=== PATIENT | female | born 1980 | race Caucasian/White ===

== ENCOUNTER 2018-01-12 08:05 | Inpatient (IN) | payer OTHER ==
[2018-01-12 08:56] VITALS: BMI 38.7
[2018-01-12] MEDS ORDERED: OXYTOCIN 20 UNITS in 0.9% NS 20 UNIT/1,000 ML INFUS.BAG IV ONE ×2 (09:45→13:25)
[2018-01-12] MEDS ORDERED: ONDANSETRON 4 MG/2 ML VIAL IVPUSH PRN (09:58)
[2018-01-12] MEDS ORDERED: morphine SULFATE/Preservative Free 0.5 MG/ML (1cc Syringe) EP ONE (09:58)
[2018-01-12] MEDS ORDERED: CITRIC ACID/SODIUM CITRATE 30 ML UNIT-DOSE CUP PO ONE (10:13)
[2018-01-12] MEDS ORDERED: ELECTROLYTE-148 SOLN 500 ML IV ONE (10:13)
[2018-01-12] MEDS ORDERED: PANTOPRAZOLE SODIUM 40 MG VIAL IVPUSH SCH (10:15)
[2018-01-12] MEDS: ELECTROLYTE-148 SOLN 1,000 ML IV SCH (10:15)
[2018-01-12] MEDS ORDERED: morphine SULFATE/Preservative Free 0.5 MG/ML (1cc Syringe) ONE (10:16)
[2018-01-12] MEDS ORDERED: BUPIVACAINE 0.75% IN DEXTROSE/PF 2ML AMPULE NR ONE (10:18)
--- NOTE | 2018-01-12 10:21 | HP ---
Past Medical History - Admission History of Present Illness: 37 yo @ 39 6/7 wks by first trimester ultrasound, EDC 01/13/2018 complicated by: 1. Prior delivery 2. Hx/o obesity, s/p bariatric surgery x 2 Lap band 2007, gastric sleeve 2012 3. AMA - favorable testing 4. Anemia - previously on iron infusion (5 doses) She presents for routine scheduled CD. She reports movement, denies leakage of fluid, vaginal bleeding or contractions. History Source: Patient Limitations to Obtaining History: No Limitations - Past Medical History Cardiovascular: No: HTN Pulmonary: No: Asthma Gastrointestinal: Yes: GERD ...: 2 ...Para: 1 ...Term: 1 ...: 0 ...Spon : 0 ...Induced : 0 ...Multiple Gestation: 0 ...LMP: 04/08/17 ...EDC by Sono: 01/13/18 Heme/Onc: Yes: Anemia - Past Surgical History Hx Myomectomy: No Hx Transabdominal Cerclage: No Additional Surgical History: Lap Band 2007. Gastric Sleeve 2012 - Smoking History Smoking history: Never smoked Have you smoked in the past 12 months: No - Alcohol/Substance Use Hx Alcohol Use: No History of Substance Use: reports: None - Social History Usual Living Arrangement: Yes: With Spouse History of Recent Travel: No Home Medications - Allergies Allergies/Adverse Reactions: Allergies Allergy/AdvReac Type Severity Reaction Status Date / Time Penicillins Allergy Mild Hives Verified 01/12/18 08:58 - Home Medications Home Medications: Ambulatory Orders Nexium 1 tab PO DAILY 01/12/18 Tablet 1 tab PO DAILY 01/12/18 Family Disease History - Family Disease History Family History: Denies Review of Systems - Review of Systems Constitutional: reports: No Symptoms Neck: reports: No Symptoms Cardiovascular: reports: No Symptoms Respiratory: reports: No Symptoms Genitourinary: reports: No Symptoms Integumentary: reports: No Symptoms Neurological: reports: No Symptoms Endocrine: reports: No Symptoms Hematology/Lymphatic: reports: No Symptoms Psychiatric: reports: No Symptoms Physical Exam - Maternity Vital Signs: Vital Signs Temperature 97.8 F 01/12/18 08:05 Pulse Rate 83 01/12/18 08:05 Respiratory Rate 20 01/12/18 09:00 Blood Pressure 105/68 01/12/18 08:05 O2 Sat by Pulse Oximetry (%) Constitutional: Yes: Well Nourished, No Distress, Calm Cardiovascular: Yes: Regular Rate and Rhythm Lungs: Clear to auscultation - Abdominal Exam/OB Number of Fetuses: Single Presentation: Vertex Contractions: No Heart Rate (range): 125 Category: I - Physical Exam Musculoskeletal: Yes: WNL Edema: Yes ...Motor Strength: WNL Psychiatric: Yes: Alert, Oriented - Labs Lab Results: PNL - O positive, antibody negative, RPR NR; HBS Ag negative; Runella immune; GBS negative; HIV negative Hemorrhage Risk Assessment - Risk Factors Medium Risk Factors: Yes: Prior , uterine surgery,or multiple laparotomies High Risk Factors: Yes: None Risk Score: 1 Risk Level: Medium Risk Assessment/Plan 37 yo for repeat scheduled CD 1. Consents reviewed and signed. Risks including infection, hemorrhage requiring transfusion, damage to surrounding organs such as bowel and bladder, risk of injury to infant was discussed. 2. PCN allergy, plan for clindamycin 3. GBS negative 4. Hx/o bariatric surgery - plan for nexium daily, avoidance of Motrin and Caldolor. 5. Will proceed to OR
[2018-01-12] MEDS ORDERED: ePHEDrine SULFATE 50 MG/1 ML AMPULE ONE (10:29)
[2018-01-12] MEDS ORDERED: CLINDAMYCIN PHOSPHATE 600 MG/4 ML VIAL ONE (10:35)
[2018-01-12] MEDS ORDERED: GENTAMICIN SO4 80 MG/2 ML VIAL ONE ×2 (10:37→10:38)
[2018-01-12] MEDS ORDERED: PHENYLEPHRINE HCL 10 MG/1 ML SINGLE DOSE VIAL ONE (10:40)
[2018-01-12] MEDS ORDERED: OXYTOCIN 10 UNITS/ML VIAL ONE (10:53)
[2018-01-12] MEDS ORDERED: TUBERCULIN PPD 5 TU/0.1ML SYRINGE (IN PATIENT USE ONLY) ID ONE (11:36)
[2018-01-12] MEDS ORDERED: WITCH HAZEL 50% (TUCKS) 40 PAD/JAR PAD TP PRN (11:37)
[2018-01-12] MEDS ORDERED: IBUPROFEN 800 MG/8 ML IJ IVPB PRN (11:37)
[2018-01-12] MEDS ORDERED: SENNOSIDES/DOCUSATE COMBO (SENNA PLUS) TABLET (UD) PO PRN (11:37)
[2018-01-12] MEDS ORDERED: METHYLERGONOVINE MALEATE 0.2 MG/1 ML AMP IM PRN (11:37)
[2018-01-12] MEDS ORDERED: IBUPROFEN 600 MG TABLET (FP) PO PRN (11:37)
[2018-01-12] MEDS ORDERED: ACETAMINOPHEN 1000 MG/100 ML VIAL (NON FORMULARY) IVPB PRN (11:45)
--- NOTE | 2018-01-12 11:55 | PN ---
Delivery - Delivery Section: Repeat Type of Anesthesia: Spinal Episiotomy/Laceration: None EBL (cc): 700 Delivery, Single - Stages of Labor Date of Delivery: 01/12/18 Time of Delivery: 10:54 Time Placenta Delivered: 10:55 - Condition of Instructional Supervisor/Housekeeping Supervisor Present: Yes Infant Gender: Male Weight: 6 lb 15 oz Position: Left, OA Total Hours ROM (Hrs/Mins): 2 mins - 1 Minute Total Score: 9 5 Minutes Total Score: 9 - [place] Feeding Plan Initial Plan: Exclusive throughout hospitalization Remarks - Remarks Remarks: Surgery: Repeat delivery via pfannenstiel Incision Surgeon: Gustavo; Assist: [place]; Anesthesia: Joyo Anesthesia type: Spinal Findings: Male infant, LOT position, 9,9; wt 6 lb 15 oz; 19 inches; normal tubes and ovaries bilaterally IVFluids: 1500; EBL: 700 Dictation: [id number]
[2018-01-12] MEDS: OXYTOCIN 20 UNITS in 0.9% NS 20 UNIT/1,000 ML INFUS.BAG IV SCH (12:55)
--- NOTE | 2018-01-12 19:56 | OP ---
DATE OF OPERATION: 01/12/2018 ATTENDING PHYSICIAN RESPONSIBLE FOR FINAL REPORT: Yomaira Chen M.D. PREOPERATIVE DIAGNOSIS: Intrauterine 39+ weeks, prior section, desiring repeat. POSTOPERATIVE DIAGNOSIS: Intrauterine 39+ weeks, prior section, desiring repeat. SURGEON: Yomaira Chen M.D. CAREER CENTER ADVISOR: Jian Duncan M.D. STRATEGY LEAD: Tommy Crawford M.D. ANESTHESIA: Spinal. FINDINGS: Male infant, LOT position, Apgars 9 and 9, weight 6 pounds 15 ounces , 19 inches. Normal tubes and ovaries bilaterally. INDICATION: The patient is a 37-year-old 2 para 1 with history of prior section, desiring repeat. She was counseled regarding risks, benefits , and alternatives and complications to procedure including infection, bleeding, damage to surrounding organs such as bowel, bladder and infant. She expressed understanding, was brought to operating room. DESCRIPTION OF PROCEDURE: When anesthesia was felt to be adequate, patient was prepped and draped in normal sterile fashion, placed in dorsal supine position with a leftward tilt. Approximately 12-cm skin incision was made with knife and carried down to underlying rectus muscle using Bovie electrocautery. The fascia was nicked in the midline, extended laterally using the electrocautery. Inferior portion of the fascial incision was tented up using Juliet clamps and dissected off underlying rectus muscle using Ceja scissors. Attention was brought to superior portion where in similar fashion was tented up using Juliet clamps and dissected off the underlying rectus muscles using Ceja scissors. The rectus muscle was in midline and the peritoneum was entered sharply and extended superiorly and inferiorly using Metzenbaum scissors. The Tay-O retractor was placed in the abdominal cavity. The interior ring was verified to not have any loops of bowel caught in the retractor and was used for adequate visualization of the abdominal cavity. The hysterotomy was performed with a knife and carried down in extended superiorly and laterally using the bandage scissors. The amniotomy was performed, clear fluid was noted. 's head was brought to hysterotomy site, it was delivered atraumatically followed by shoulders and body without difficulty. Cord was clamped and cut, baby was handed to the NICU staff. Cord blood was collected and sent. The placenta was extracted. The uterus was cleared of all clot and debris. The hysterotomy was then repaired using a 0 Biosyn in running fashion with 2nd layer as imbricated layer. Copious irrigation was performed. Examination of bilateral fallopian tubes and ovaries were noted to be normal appearing. The peritoneum was then closed using 2-0 Biosyn in a running fashion. The fascia was closed using 0 Vicryl in a running fashion. The subcutaneous fat was closed using a 3-0 Vicryl in a running fashion. The skin was closed using 3-0 Vicryl. Patient tolerated procedure well. Estimated blood loss was 700 mL. Patient was brought to recovering room in stable condition. Leda [id number] MTDD
[2018-01-13] MEDS: ACETAMINOPHEN 325 MG TABLET (FP) PO PRN ×4 (06:46→22:56)
[2018-01-13] MEDS: PANTOPRAZOLE 40 MG TABLET (FP) PO SCH ×2 (06:47→10:46)
[2018-01-13 07:18] LABS: BASO % 0.5 % (0-2.0); EOS % 1.1 % (0-4.5); HEMOGLOBIN 11.3 GM/dL (10.7-15.3); MCHC 32.5 g/dl (32.0-36.0); MEAN CELL VOLUME 86.3 fl (80-96); MEAN PLT VOLUME 7.6 fl (7.5-11.1); MONO % 6.7 % (3.8-10.2); NEUT % 81.7 % (42.8-82.8); PLATELET COUNT 307 K/MM3 (134-434); RBC 4.05 M/mm3 (3.60-5.2); RDW 22.9 % (11.6-15.6); WHITE BLOOD COUNT 15.4 K/mm3 (4.0-10.0)
[2018-01-13] MEDS: SIMETHICONE 80 MG TAB.CHEW (FP) PO PRN ×4 (07:50→22:55)
[2018-01-13] MEDS: oxyCODONE HCL 5 MG TABLET PO PRN ×4 (07:50→22:55)
--- NOTE | 2018-01-13 08:20 | PN ---
Progress Note, Physician Chief Complaint: Pt. ambulating and voiding, pain controlled, no anesthesia complaints. - Current Medication List Current Medications: Active Medications Acetaminophen (Tylenol -) 650 mg PO Q4H PRN PRN Reason: FEVER Last Admin: 01/13/18 06:46 Dose: 650 mg Acetaminophen (Ofirmev Injection -) 1,000 mg IVPB Q6H PRN PRN Reason: PAIN LEVEL 6-10 Last Admin: 01/13/18 00:54 Dose: 1,000 mg Bisacodyl (Dulcolax Suppository -) 10 mg RC PRN PRN PRN Reason: CONSTIPATION Diphenhydramine HCl (Benadryl Injection -) 25 mg IVPUSH Q4H PRN PRN Reason: Pruritis Last Admin: 01/12/18 21:56 Dose: 25 mg Diphtheria/Tetanus/Acell Pertussis (Boostrix -) 0.5 ml IM .ONCE ONE Stop: 01/13/18 10:01 Enoxaparin Sodium (Lovenox -) 40 mg SQ DAILY [facility] Parenteral Electrolytes (Plasma-Lyte 148 -) 1,000 mls @ 125 mls/hr IV ASDIR [facility] Last Admin: 01/12/18 10:15 Dose: 125 mls/hr Oxytocin/Sodium Chloride (Normal Saline+20 Units Oxytocin -) 20 unit in 1,000 mls @ 125 mls/hr IV ASDIR [facility] Last Admin: 01/12/18 12:55 Dose: 125 mls/hr Methylergonovine Maleate (Methergine Injection -) 0.2 mg IM Q4H PRN PRN Reason: Excessive Bleeding (L&D) Ondansetron HCl (Zofran Injection) 4 mg IVPUSH Q4H PRN PRN Reason: NAUSEA Oxycodone HCl (Roxicodone -) 5 mg PO Q4H PRN PRN Reason: PAIN LEVEL 4 - 6 Last Admin: 01/13/18 07:50 Dose: 5 mg Pantoprazole Sodium (Protonix -) 40 mg PO DAILY [facility] Last Admin: 01/13/18 06:47 Dose: 40 mg Multivit/Folic Acid/Iron ( Vitamins (Sjr) -) 1 tab PO DAILY [facility] Senna/Docusate Sodium (Pericolace -) 2 tablet PO HS PRN PRN Reason: CONSTIPATION Simethicone (Mylicon -) 80 mg PO Q4H PRN PRN Reason: GAS Last Admin: 01/13/18 07:50 Dose: 80 mg Witch Amy/Glycerin (Tucks Pads -) 1 pad TP PRN PRN PRN Reason: Pain - Topical - Objective Vital Signs: Vital Signs Temperature 98.5 F 01/13/18 06:00 Pulse Rate 83 01/13/18 06:00 Respiratory Rate 20 01/13/18 07:00 Blood Pressure 103/54 01/13/18 06:00 O2 Sat by Pulse Oximetry (%) 100 01/12/18 12:45 Constitutional: Yes: Well Nourished, No Distress, Calm Musculoskeletal: Yes: WNL Neurological: Yes: WNL, Alert, Oriented ...Motor Strength: WNL Labs: CBC, BMP 01/13/18 06:35 Assessment/Plan POD#1 s/p under spinal with duramorph. Doing well. D/C from anesthesia care.
[2018-01-13] MEDS: ENOXAPARIN NA (PORCINE) 40 MG/0.4 ML DISP.SYRIN SQ SCH (09:21)
[2018-01-13] MEDS: PRENATAL VITAMINS W/ FOLIC ACID TABLET (FP) PO SCH (09:21)
[2018-01-13] MEDS ORDERED: PATIENT'S OWN MEDICATION (NON-FORMULARY) (Prenatal Tablet 1 TAB) PO SCH (10:00)
[2018-01-13] MEDS ORDERED: DIPHTH,PERTUSS(ACELL),TET 0.5 ML DISP.SYRIN IM ONE (10:00)
--- NOTE | 2018-01-13 10:51 | PN ---
Post Progress Note - Subjective Subjective: She has no complains, ambulating, + BM Post Day: 1 Type of Delivery: Repeat C/S Vital Signs: Vital Signs Temperature 98.2 F 01/13/18 10:00 Pulse Rate 72 01/13/18 10:00 Respiratory Rate 20 01/13/18 10:00 Blood Pressure 96/46 01/13/18 10:00 O2 Sat by Pulse Oximetry (%) 100 01/12/18 12:45 Breast Exam: Yes: Soft Uterus: Yes: Fundus Firm, Fundus @ umbilicus Incision: Yes: Dressing dry and intact Abdomen/GI: Yes: Abdomen soft Lochia: Yes: Rubra Lochia, amount: Small Extremities: Yes: Calves non-tender Perineum: Yes: Intact Activity: Ambulating - Labs Labs: CBC WBC 15.4 K/mm3 (4.0-10.0) H 01/13/18 06:35 RBC 4.05 M/mm3 (3.60-5.2) 01/13/18 06:35 Hgb 11.3 GM/dL (10.7-15.3) 01/13/18 06:35 Hct 35.0 % (32.4-45.2) 01/13/18 06:35 MCV 86.3 fl (80-96) 01/13/18 06:35 MCH 28.0 pg (25.7-33.7) 01/13/18 06:35 MCHC 32.5 g/dl (32.0-36.0) 01/13/18 06:35 RDW 22.9 % (11.6-15.6) H 01/13/18 06:35 Plt Count 307 K/MM3 (134-434) 01/13/18 06:35 MPV 7.6 fl (7.5-11.1) 01/13/18 06:35 Absolute Neuts (auto) 12.6 # 01/13/18 06:35 Neutrophils % 81.7 % (42.8-82.8) 01/13/18 06:35 Lymphocytes % 10.0 % (8-40) D 01/13/18 06:35 Monocytes % 6.7 % (3.8-10.2) 01/13/18 06:35 Eosinophils % 1.1 % (0-4.5) D 01/13/18 06:35 Basophils % 0.5 % (0-2.0) 01/13/18 06:35 Nucleated RBC % 0 % (0-0) 01/13/18 06:35 Assessment/Plan 37yo P2 now POD # 1 Doing well, Afebrile, VSS Rh positive no need for RhoGam continue routine care Male infant for circumcision
[2018-01-13] MEDS ORDERED: BISACODYL 10 MG SUPP.RECT RC PRN (11:37)
[2018-01-13] MEDS: ELECTROLYTE-148 SOLN 1,000 ML IV SCH (23:14)
[2018-01-13] MEDS: OXYTOCIN 20 UNITS in 0.9% NS 20 UNIT/1,000 ML INFUS.BAG IV SCH (23:15)
[2018-01-14] MEDS: SIMETHICONE 80 MG TAB.CHEW (FP) PO PRN ×5 (04:41→23:04)
[2018-01-14] MEDS: oxyCODONE HCL 5 MG TABLET PO PRN ×5 (04:41→23:04)
[2018-01-14] MEDS: ACETAMINOPHEN 325 MG TABLET (FP) PO PRN ×5 (04:42→23:04)
[2018-01-14] MEDS: ENOXAPARIN NA (PORCINE) 40 MG/0.4 ML DISP.SYRIN SQ SCH (09:16)
[2018-01-14] MEDS: PRENATAL VITAMINS W/ FOLIC ACID TABLET (FP) PO SCH (09:16)
[2018-01-14] MEDS: PANTOPRAZOLE 40 MG TABLET (FP) PO SCH (09:16)
--- NOTE | 2018-01-14 23:51 | PN ---
Progress Note (short form) - Note Progress Note: Patient states desires circumcision for infant. Discussed risks including infection, bleeding, damage to tip of penis, and unsatisfactory result, resulting in surgical repair or repeat circumcision. Patient expressed understanding and consents to procedure. Reviewed infants chart, cleared for circumcision and normal genitalia per fleet service clerk, Dr. Zamora
[2018-01-15] MEDS: ACETAMINOPHEN 325 MG TABLET (FP) PO PRN ×4 (06:05→23:36)
[2018-01-15] MEDS: SIMETHICONE 80 MG TAB.CHEW (FP) PO PRN ×4 (06:05→23:36)
[2018-01-15] MEDS: oxyCODONE HCL 5 MG TABLET PO PRN ×4 (06:05→23:36)
[2018-01-15 07:01] LABS: BASO % 0.6 % (0-2.0); EOS % 2.8 % (0-4.5); HEMATOCRIT 33.4 % (32.4-45.2); HEMOGLOBIN 10.9 GM/dL (10.7-15.3); LYMPH % 20.3 % (8-40); MCH 28.3 pg (25.7-33.7); MCHC 32.8 g/dl (32.0-36.0); MEAN CELL VOLUME 86.2 fl (80-96); MEAN PLT VOLUME 7.3 fl (7.5-11.1); MONO % 6.8 % (3.8-10.2); NEUT % 69.5 % (42.8-82.8); PLATELET COUNT 286 K/MM3 (134-434); RBC 3.87 M/mm3 (3.60-5.2); RDW 22.6 % (11.6-15.6); WHITE BLOOD COUNT 8.4 K/mm3 (4.0-10.0)
--- NOTE | 2018-01-15 08:00 | PN ---
Post Progress Note - Subjective Subjective: Patient without acute complaints. Reports tolerating oral intake without nausea or vomiting. Ambulating without dizziness. Denies fevers or chills. Pain well controlled with oral pain medication. with supplementation. Passing flatus. Post Day: 3 Type of Delivery: Repeat C/S Vital Signs: Vital Signs Temperature 98.1 F 01/14/18 20:12 Pulse Rate 72 01/14/18 20:12 Respiratory Rate 20 01/14/18 20:12 Blood Pressure 128/60 01/14/18 20:12 O2 Sat by Pulse Oximetry (%) 100 01/12/18 12:45 Breast Exam: Yes: Soft Uterus: Yes: Fundus Firm Incision: Yes: Sutures intact. No: Redness, Oozing Abdomen/GI: Yes: Abdomen soft, Abdominal Distention (mild soft), Tender (mild incisional), Passing flatus, Tolerating PO Lochia: Yes: Serosa Lochia, amount: Small Extremities: Yes: Calves non-tender, Edema (+1) Activity: Ambulating - Labs Labs: CBC WBC 8.4 K/mm3 (4.0-10.0) 01/15/18 06:00 RBC 3.87 M/mm3 (3.60-5.2) 01/15/18 06:00 Hgb 10.9 GM/dL (10.7-15.3) 01/15/18 06:00 Hct 33.4 % (32.4-45.2) 01/15/18 06:00 MCV 86.2 fl (80-96) 01/15/18 06:00 MCH 28.3 pg (25.7-33.7) 01/15/18 06:00 MCHC 32.8 g/dl (32.0-36.0) 01/15/18 06:00 RDW 22.6 % (11.6-15.6) H 01/15/18 06:00 Plt Count 286 K/MM3 (134-434) 01/15/18 06:00 MPV 7.3 fl (7.5-11.1) L 01/15/18 06:00 Absolute Neuts (auto) 5.8 # 01/15/18 06:00 Neutrophils % 69.5 % (42.8-82.8) 01/15/18 06:00 Lymphocytes % 20.3 % (8-40) D 01/15/18 06:00 Monocytes % 6.8 % (3.8-10.2) 01/15/18 06:00 Eosinophils % 2.8 % (0-4.5) D 01/15/18 06:00 Basophils % 0.6 % (0-2.0) 01/15/18 06:00 Nucleated RBC % 0 % (0-0) 01/15/18 06:00 Assessment/Plan 37 yo POD #3 s/p repeat CD, afebrile, vital signs stable, doing well 1. Continue routine postoperative care. 2. Encourage ambulation and incentive spirometer use 3. Continue oral pain medication 4. Anticipate discharge home postoperative day #4
[2018-01-15] MEDS: PANTOPRAZOLE 40 MG TABLET (FP) PO SCH ×2 (08:05→10:33)
[2018-01-15] MEDS: ENOXAPARIN NA (PORCINE) 40 MG/0.4 ML DISP.SYRIN SQ SCH (11:43)
[2018-01-15] MEDS: PRENATAL VITAMINS W/ FOLIC ACID TABLET (FP) PO SCH (11:43)
[2018-01-16] MEDS: PANTOPRAZOLE 40 MG TABLET (FP) PO SCH ×2 (07:58→10:18)
[2018-01-16] MEDS: ACETAMINOPHEN 325 MG TABLET (FP) PO PRN (07:59)
[2018-01-16] MEDS: oxyCODONE HCL 5 MG TABLET PO PRN (07:59)
[2018-01-16] MEDS: SIMETHICONE 80 MG TAB.CHEW (FP) PO PRN (08:00)
--- NOTE | 2018-01-16 08:22 | DS ---
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 Vital Signs: Vital Signs Temperature 98.2 F 01/15/18 21:00 Pulse Rate 74 01/15/18 21:00 Respiratory Rate 20 01/15/18 21:00 Blood Pressure 102/54 01/15/18 21:00 O2 Sat by Pulse Oximetry (%) 100 01/12/18 12:45 Constitutional: Yes: Well Nourished, No Distress Eyes: Yes: WNL, Conjunctiva Clear HENT: Yes: WNL, Atraumatic, Normocephalic Neck: Yes: WNL, Supple, Trachea Midline Cardiovascular: Yes: WNL, Regular Rate and Rhythm Respiratory: Yes: WNL, Regular, CTA Bilaterally Gastrointestinal: Yes: WNL, Normal Bowel Sounds, Soft ...Rectal Exam: Yes: Deferred Renal/: Yes: WNL External Genitalia: Yes: Normal Internal Exam Deferred: Yes ....Post : Yes: Uterus firm, Uterus non-tender, Slight lochia rubra Breast(s): Yes: WNL Musculoskeletal: Yes: WNL Extremities: Yes: WNL Edema: Yes Edema: LLE: Trace, RLE: Trace Integumentary: Yes: WNL Wound/Incision: Yes: Clean/Dry, Well Approximated Neurological: Yes: WNL, Alert, Oriented ...Motor Strength: WNL Psychiatric: Yes: WNL, Alert, Oriented Labs: CBC, BMP 01/15/18 06:00 Delivery - Delivery Section: Repeat, Low Flap Transverse Type of Anesthesia: Spinal Episiotomy/Laceration: None EBL (cc): 700 Delivery, Single - Stages of Labor Date of Delivery: 01/12/18 Time of Delivery: 10:54 Time Placenta Delivered: 10:55 Placenta: Yes: Manual Removal, Normal Configuration - Condition of Group Activities Aide/Information Systems Administrator Present: Yes Infant Gender: Male Weight: 3.147 kg Position: Left, OA Total Hours ROM (Hrs/Mins): 2 mins - 1 Minute Total Score: 9 5 Minutes Total Score: 9 - Feeding Plan Initial Plan: Exclusive throughout hospitalization Discharge Summary Reason For Visit: C/SECTION Current Active Problems S/P bariatric surgery (Acute) Status post repeat low transverse section (Acute) Procedures: Principal: Repeat LT C/S Condition: Good - Instructions Diet, Activity, Other Instructions: Physical activity Resume your normal everyday activity as tolerated no heavy lifting or exercise until seen by your surgeon. You may walk unlimited james of and climb stairs. You may resume driving the car when you feel safe and comfortable behind the wheel. No sexual activity as instructed. Wound care If you have a bandage, leave it on, and keep dry for 48-72 hours. After that time discard the outer bandage. If they are tapes on the skin under the out of bandage leave them in place. They will peel off in the next 7 to 10 days. Do Not Peel them off. You may shower the day after surgery. If there are tapes present on the skin, you may shower over them. Diet There are no dietary restrictions. Eat healthy, high-fiber foods. Drink 6 to 8 glasses of liquid each day. This will assist in keeping your bowels are regular. Pain management You may take Tylenol or acetaminophen or Ibuprofen (for example, Motrin, Advil etc.) from my pain prescription medication is ordered should be taken as prescribed for moderate to severe pain. Call MD for any of the following: Severe pain not relieved by medication Fever of 101 or higher Excessive bleeding or drainage on dressing Inability to urinate [facility] Reference #: [id number] Referrals: Yomaira Chen MD [Staff Physician] - Disposition: HOME - Home Medications Comprehensive Discharge Medication List: Ambulatory Orders Nexium 1 tab PO DAILY 01/12/18 Tablet 1 tab PO DAILY 01/12/18 Oxycodone HCl/Acetaminophen [Percocet 5-325 mg Tablet -] 1 tab PO Q6H #15 tab MDD 4 01/15/18
[2018-01-16] MEDS: ENOXAPARIN NA (PORCINE) 40 MG/0.4 ML DISP.SYRIN SQ SCH (09:54)
[2018-01-16] MEDS: PRENATAL VITAMINS W/ FOLIC ACID TABLET (FP) PO SCH (09:54)
[2018-01-16 11:13] VITALS: BP 111/64; PULSE 72; TEMP 98
--- NOTE | 2018-01-20 16:54 | PATH ---
Surgical Pathology Report Patient Name: GILMAR SHAH [facility]. Rec. 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 Electronically Signed Martha Esqueda M.D. Gross Description The specimen is received fresh labeled placenta and is a 466 gram, 15.0 x 14.0 x 2.9 cm. placenta with attached membranes and umbilical cord. The attached membranes are chahal, translucent with focal opacities and insert marginally. The umbilical cord measures 42 cm. in length and averages 0.8 cm. in diameter. The cord inserts eccentrically, 3.5 cm. to the nearest margin. No true knots or strictures are identified. Cut surface of the umbilical cord reveals 3 vessels. The surface is reyna-blue with minimal fibrin deposition and appropriate caliber vessels. The maternal surface is red-brown with focal defects. Sectioning reveals red-brown, spongy parenchyma. No lesions are identified. Travel Freight And Passenger Agent sections are submitted in three cassettes as follows: 1- membrane rolls and umbilical cord; 2-3- full thickness sections of placenta. 01/15/2018 saudi01/15/2018
== END 2018-01-16 11:30 | disposition home or self-care (01) | DRG 540 ==
LOC: JLDR 08:05 → J3W 13:35
PROVIDERS: ADMIT Obstetrics & Gynecology; ATTEND Obstetrics & Gynecology
PROC: 10D00Z1 Extraction of Products of Conception, Low, Open Approach (ICD-10-PCS; principal; 2018-01-12)
DX: O34.211 Maternal care for low transverse scar from previous cesarean delivery (principal); O99.213 Obesity complicating pregnancy, third trimester; E66.9 Obesity, unspecified; O36.0930 Maternal care for other rhesus isoimmunization, third trimester, not applicable or unspecified; O99.013 Anemia complicating pregnancy, third trimester; D64.9 Anemia, unspecified; O26.893 Other specified pregnancy related conditions, third trimester; K21.9 Gastro-esophageal reflux disease without esophagitis; Z68.38 Body mass index [BMI] 38.0-38.9, adult; Z98.84 Bariatric surgery status; Z3A.39 39 weeks gestation of pregnancy; Z37.0 Single live birth
CPT/HCPCS: 36415; 85025; 88307-TC; 90715; J0131

== ENCOUNTER 2018-02-04 21:16 | Emergency (ER) | payer OTHER ==
[2018-02-04 21:22] VITALS: BMI 36.5
--- NOTE | 2018-02-04 21:22 | PDOC ---
Rapid Medical Evaluation Time Seen by Provider: 02/04/18 21:19 Medical Evaluation: Allergies Allergy/AdvReac Type Severity Reaction Status Date / Time Penicillins Allergy Mild Hives Verified 01/12/18 08:58 02/04/18 21:19 I have performed a brief in-person evaluation of this patient. The patient presents with a chief complaint of: wound dehiscence of 01/12 Pertinent physical exam findings: wound dehiscence to left side of wound. No drainage present. +erythema noted I have ordered the following: labs, urine The patient will proceed to the ED for further evaluation. Discharge Disposition - Diagnosis section wound complication - Referrals - Patient Instructions - Post Discharge Activity
[2018-02-04 21:46] LABS: EOS % 3.3 % (0-4.5); HEMATOCRIT 40.2 % (32.4-45.2); HEMOGLOBIN 13.3 GM/dL (10.7-15.3); LYMPH % 40.3 % (8-40); MCH 28.8 pg (25.7-33.7); MCHC 33.1 g/dl (32.0-36.0); MEAN CELL VOLUME 87.2 fl (80-96); MEAN PLT VOLUME 7.9 fl (7.5-11.1); MONO % 6.6 % (3.8-10.2); NEUT % 48.8 % (42.8-82.8); PLATELET COUNT 414 K/MM3 (134-434); RBC 4.62 M/mm3 (3.60-5.2); RDW 18.6 % (11.6-15.6); WHITE BLOOD COUNT 8.1 K/mm3 (4.0-10.0)
[2018-02-04 21:54] LABS: URINE APPEARANCE CLEAR; URINE BILIRUBIN NEGATIVE (<2.0 mg/dL); URINE COLOR YELLOW; URINE GLUCOSE (UA) NEGATIVE (NEGATIVE); URINE KETONE NEGATIVE (NEGATIVE); URINE LEUK ESTERASE TRACE (NEGATIVE); URINE NITRITE NEGATIVE (NEGATIVE); URINE PROTEIN NEGATIVE (NEGATIVE); URINE UROBILINOGEN NEGATIVE mg/dL (0.2-1.0)
[2018-02-04 22:00] LABS: EPI CELLS RARE /HPF (FEW); URINE MUCUS RARE
[2018-02-04 22:11] LABS: ALBUMIN 3.4 g/dl (3.4-5.0); ANION GAP 7 (8-16); BILIRUBIN,TOTAL 0.2 mg/dL (0.2-1.0); BLOOD UREA NITROGEN 14 mg/dL (7-18); CALCIUM 8.8 mg/dL (8.5-10.1); CHLORIDE 107 mmol/L (98-107); CO2 28 mmol/L (21-32); GLUCOSE,RANDOM 67 mg/dL (74-106); POTASSIUM 4.3 mmol/L (3.5-5.1); SGOT/AST 17 U/L (15-37); SGPT/ALT 29 U/L (12-78); SODIUM 142 mmol/L (136-145); TOT PROT 6.8 g/dl (6.4-8.2)
[2018-02-04 22:12] LABS: ALK PHOS 80 U/L (45-117)
[2018-02-04] MEDS ORDERED: ACETAMINOPHEN 1000 MG/100 ML VIAL (NON FORMULARY) IVPB ONE (22:25)
[2018-02-04] MEDS ORDERED: SODIUM CHLORIDE 0.9% 1000 ML INFUS.BAG IV ONE ×2 (22:25)
[2018-02-04] MEDS ORDERED: KETOROLAC TROMETHAMINE 15 MG/ML VIAL IVPUSH ONE (22:25)
--- NOTE | 2018-02-04 22:38 | PDOC ---
History of Present Illness - General History Source: Patient Exam Limitations: No Limitations - History of Present Illness Initial Comments: 02/04/18 23:53 The patient is a 37-year-old female, with no past medical history, who presents to the ED with lower abdominal pain and constipation s/p on 01/12/18. The patient denies having pain over the incision but instead endorses pain to either side of the incision site. Patient followed up with her [employer] doctor for her symptoms and everything was normal. Patient was advised to report to the ED if pain persisted or if she noted any drainage from the incision site. The patient reports taking Percocet for pain; last dose was at 6 PM tonight but with no relief of her symptoms. On exam, the patient reports that she has not passed a bowel movement in 4 days. Patient is currently breast feeding. The patient denies any fever, chills, nausea, vomiting, or diarrhea. She denies any urinary complaints. She denies any dysuria, frequency, urgency, or hesitancy. Allergies: Penicillins. PCP: Dr. Ashley Mix <Misty Yee - Last Filed: 02/04/18 23:52> <Dior Long - Last Filed: 02/05/18 01:44> - General Chief Complaint: Pain Stated Complaint: REF. BY ARMOND JOHNS Time Seen by Provider: 02/04/18 21:19 Past History <Misty Yee - Last Filed: 02/04/18 23:52> - Past Medical History Asthma: No Cancer: No Cardiac Disorders: No COPD: No Diabetes: No HTN: No Seizures: No Thyroid Disease: No - Surgical History GI Surgery: Yes (GASTRIC SLEEVE) - Suicide/Smoking/Psychosocial Hx Smoking History: Never smoked Have you smoked in the past 12 months: No Hx Alcohol Use: No Drug/Substance Use Hx: No Hx Substance Use Treatment: No <Dior Long - Last Filed: 02/05/18 01:44> - Past Medical History Allergies/Adverse Reactions: Allergies Allergy/AdvReac Type Severity Reaction Status Date / Time Penicillins Allergy Mild Hives Verified 02/04/18 21:22 Home Medications: Ambulatory Orders Nexium 1 tab PO DAILY 01/12/18 Oxycodone HCl/Acetaminophen [Percocet 5-325 mg Tablet -] 1 tab PO Q6H PRN MDD 4 02/05/18 Review of Systems - Review of Systems Able to Perform ROS?: Yes Comments:: 02/05/18 00:01 GENERAL/CONSTITUTIONAL: No fever or chills. No weakness. HEAD, EYES, EARS, NOSE AND THROAT: No change in vision. No ear pain or discharge. No sore throat. CARDIOVASCULAR: No chest pain or shortness of breath. RESPIRATORY: No cough, wheezing, or hemoptysis. GASTROINTESTINAL: (+)Lower abdominal pain, constipation. No nausea, vomiting, diarrhea. GENITOURINARY: No dysuria, frequency, or change in urination. MUSCULOSKELETAL: No joint or muscle swelling or pain. No neck or back pain. SKIN: No rash NEUROLOGIC: No headache, vertigo, loss of consciousness, or change in strength/ sensation. ENDOCRINE: No increased thirst. No abnormal weight change. HEMATOLOGIC/LYMPHATIC: No anemia, easy bleeding, or history of blood clots. ALLERGIC/IMMUNOLOGIC: No hives or skin allergy. <Misty Yee - Last Filed: 02/04/18 23:52> *Physical Exam - Vital Signs Last Vital Signs Temp Pulse Resp BP Pulse Ox 97.8 F 74 18 144/69 97 02/04/18 21:18 02/04/18 21:18 02/04/18 21:18 02/04/18 21:18 02/04/18 21:18 - Physical Exam Comments: 02/05/18 00:02 GENERAL: Awake, alert, and fully oriented, in no acute distress HEAD: No signs of trauma EYES: PERRLA, EOMI, sclera anicteric, conjunctiva clear ENT: Auricles normal inspection, hearing grossly normal, nares patent, oropharynx clear without exudates. Moist mucosa NECK: Normal ROM, supple, no lymphadenopathy, JVD, or masses LUNGS: Breath sounds equal, clear to auscultation bilaterally. No wheezes, and no crackles HEART: Regular rate and rhythm, normal S1 and S2, no murmurs, rubs or gallops ABDOMEN: (+)Tenderness at the lateral aspects of her incision site, right side worse than left, Mild dehiscence on the left side, no drainage, Nothing can be expressed from the site, Suprapubic tenderness. Soft, normoactive bowel sounds. No guarding, no rebound. No masses EXTREMITIES: Normal range of motion, no edema. No clubbing or cyanosis. No cords, erythema, or tenderness NEUROLOGICAL: Cranial nerves II through XII grossly intact. Normal speech, normal gait SKIN: Warm, Dry, normal turgor, no rashes or lesions noted <Misty Yee - Last Filed: 02/04/18 23:52> - Vital Signs Last Vital Signs Temp Pulse Resp BP Pulse Ox 97.8 F 74 18 144/69 97 02/04/18 21:18 02/04/18 21:18 02/04/18 21:18 02/04/18 21:18 02/04/18 21:18 <Dior Long - Last Filed: 02/05/18 01:44> ED Treatment Course - LABORATORY CBC & Chemistry Diagram: 02/04/18 21:40 02/04/18 21:40 - ADDITIONAL ORDERS Additional order review: Laboratory Results 02/04/18 02/04/18 21:40 21:40 Sodium 142 Potassium 4.3 Chloride 107 Carbon Dioxide 28 Anion Gap 7 L BUN 14 Creatinine 1.0 Creat Clearance w eGFR > 60 Random Glucose 67 L Calcium 8.8 Total Bilirubin 0.2 AST 17 ALT 29 Alkaline Phosphatase 80 Total Protein 6.8 Albumin 3.4 Urine Color Yellow Urine Appearance Clear Urine pH 5.0 Ur Specific [place] 1.030 Urine Protein Negative Urine Glucose (UA) Negative Urine Ketones Negative Urine Blood 3+ H Urine Nitrite Negative Urine Bilirubin Negative Urine Urobilinogen Negative Ur Leukocyte Esterase Trace Urine WBC (Auto) 9 Urine RBC (Auto) 83 Ur Epithelial Cells Rare Urine Mucus Rare 02/04/18 21:40 RBC 4.62 MCV 87.2 MCHC 33.1 RDW 18.6 H MPV 7.9 Neutrophils % 48.8 D Lymphocytes % 40.3 H D Monocytes % 6.6 Eosinophils % 3.3 Basophils % 1.0 - Medications Given in the ED: ED Medications Discontinued Medications Generic Name Dose Route Start Last Admin Trade Name Freq PRN Reason Stop Dose Admin Acetaminophen 1,000 mg 02/04/18 22:25 02/04/18 23:06 Ofirmev Injection - IVPB 02/04/18 22:26 1,000 mg ONCE ONE Administration Ketorolac Tromethamine 15 mg 02/04/18 22:25 02/04/18 23:06 Toradol Injection - IVPUSH 02/04/18 22:26 15 mg ONCE ONE Administration Sodium Chloride 1,000 ml 02/04/18 22:25 02/04/18 23:06 Normal Saline - IV 02/04/18 22:26 1,000 ml ONCE ONE Administration Sodium Chloride 1,000 ml 02/04/18 22:25 02/04/18 23:06 Normal Saline - IV 02/04/18 22:26 1,000 ml ONCE ONE Administration <Misty Yee - Last Filed: 02/04/18 23:52> - LABORATORY CBC & Chemistry Diagram: 02/04/18 21:40 02/04/18 21:40 - ADDITIONAL ORDERS Additional order review: Laboratory Results 02/04/18 02/04/18 21:40 21:40 Sodium 142 Potassium 4.3 Chloride 107 Carbon Dioxide 28 Anion Gap 7 L BUN 14 Creatinine 1.0 Creat Clearance w eGFR > 60 Random Glucose 67 L Calcium 8.8 Total Bilirubin 0.2 AST 17 ALT 29 Alkaline Phosphatase 80 Total Protein 6.8 Albumin 3.4 Urine Color Yellow Urine Appearance Clear Urine pH 5.0 Ur Specific [place] 1.030 Urine Protein Negative Urine Glucose (UA) Negative Urine Ketones Negative Urine Blood 3+ H Urine Nitrite Negative Urine Bilirubin Negative Urine Urobilinogen Negative Ur Leukocyte Esterase Trace Urine WBC (Auto) 9 Urine RBC (Auto) 83 Ur Epithelial Cells Rare Urine Mucus Rare 02/04/18 21:40 RBC 4.62 MCV 87.2 MCHC 33.1 RDW 18.6 H MPV 7.9 Neutrophils % 48.8 D Lymphocytes % 40.3 H D Monocytes % 6.6 Eosinophils % 3.3 Basophils % 1.0 - RADIOLOGY Radiology Studies Ordered: Category Date Time Status ABDOMEN & PELVIS CT WITH CONTR [CT] Stat CT Scan 02/04/18 22:26 Ordered TRANSVAGINAL ULTRASOUND US [US] Stat Ultrasound 02/04/18 22:26 Ordered <Dior Long - Last Filed: 02/05/18 01:44> Medical Decision Making - Medical Decision Making 02/04/18 22:27 a/p: 37yo female s/p c section 01/12 with lower abd pain -has been constipated since going home -pt is breast feeding -pain over lateral aspects of incision - concern for post op seroma/abscess -no redness or warmth of skin -poss abd pain from constipation -mild wound dehiscence without drainage from the wound -will obtain labs, ct abd/pelvis and pelvic ultrasound to eval for poss retained products vs post op abscess/fluid collection 02/05/18 00:58 TVUS: enlarged post uterus, endometrial thickness is 8.4 (should be less than 5mm), no retained products, follow up ultrasound recommended, could not visualize ovaries, no ff 02/05/18 01:36 ct shows enlarged uterus no bowel obstruction or free air, large amount of stool in the colon normal iver, spleen, kidneys, gallbladder 02/05/18 01:37 discussed imaging with the patient recommended continuing colace, but also adding miralax to her regimen dicscussed follow up with her soil conservationist answered all questions stable for dc to home <Dior Long - Last Filed: 02/05/18 01:44> *DC/Admit/Observation/Transfer - Attestations Scribe Attestion: 02/05/18 00:23 Documentation prepared by Misty Yee, acting as medical supply technician for Dior Long DO. <Misty Yee - Last Filed: 02/04/18 23:52> - Discharge Dispostion Decision to Admit order: No - Attestations Physician Attestion: 02/05/18 01:44 I, Dr. Dior Long DO, attest that this document has been prepared under my direction and personally reviewed by me in its entirety. I further attest, that it accurately reflects all work, treatment, procedures and medical decision -making performed by me. <Dior Long - Last Filed: 02/05/18 01:44> Diagnosis at time of Disposition: section wound complication, Constipation - Discharge Dispostion Disposition: HOME Condition at time of disposition: Stable - Referrals Referrals: Ashley Mix MD [Primary Care Provider] - Yomaira Chen MD [Staff Physician] - - Patient Instructions Printed Discharge Instructions: DI for Constipation Additional Instructions: Please increase your water intake. Please take miralax (1 capful in 8oz water daily before bed). Please follow up with your soil conservationist. Please return to the Ed with any further concerns or complaints. If you develop diarrhea please stop using the miralax daily. - Post Discharge Activity
[2018-02-04] MEDS ORDERED: KETOROLAC TROMETHAMINE 15 MG/ML VIAL ONE (22:54)
[2018-02-04] MEDS ORDERED: ACETAMINOPHEN INJECTION 100 ML IVPB ONE (22:54)
[2018-02-05 01:56] VITALS: BP 119/57; PULSE 52; TEMP 98.6
== END 2018-02-05 01:55 | disposition home or self-care (01) ==
LOC: JER 21:16
PROC: 3E0337Z Introduction of Electrolytic and Water Balance Substance into Peripheral Vein, Percutaneous Approach (ICD-10-PCS; principal; 2018-02-04)
PROC: 3E033NZ Introduction of Analgesics, Hypnotics, Sedatives into Peripheral Vein, Percutaneous Approach (ICD-10-PCS; 2018-02-04)
PROC: 3E0333Z Introduction of Anti-inflammatory into Peripheral Vein, Percutaneous Approach (ICD-10-PCS; 2018-02-04)
DX: Y83.8 Other surgical procedures as the cause of abnormal reaction of the patient, or of later complication, without mention of misadventure at the time of the procedure (principal); Y76.3 Surgical instruments, materials and obstetric and gynecological devices (including sutures) associated with adverse incidents; Y92.9 Unspecified place or not applicable; K59.00 Constipation, unspecified
CPT/HCPCS: 36415; 74177-TC; 76830-TC; 80053; 81003; 81015; 85025; 87086; 99283-25; J0131; J7030